=== PATIENT | male | born 1980 | race Caucasian/White ===

== ENCOUNTER 2017-08-02 22:47 | Emergency (ER) | payer SELFPAY ==
[2017-08-02 23:00] VITALS: RESP 18
--- NOTE | 2017-08-02 23:35 | ED ---
Anxiety HPI - General Chief Complaint: Anxiety Stated Complaint: Chest Pain Time Seen by Provider: 08/02/17 23:06 Source: patient Mode of arrival: wheelchair - History of Present Illness Initial Comments: This patient is a 37-year-old man who presents to be evaluated for a number of symptoms, including anxiety, shortness of breath, and paresthesias of the face and bilateral hands. The patient states that just before 9 PM he had rushed out to buy a birthday cake and candles for a friend whose that was. He states that while he was driving there he started to feel like his face and hands were tingling or numb, and he began feeling short of breath and like his chest was cold. The patient states that he pulled the car over, old on the windows, and only started feeling more anxious. He then went home more family prompted him to be seen here. His brother relates that the patient has had previous episodes of panic or anxiety. The patient states that this was a little different in that he experienced the numbness and tingling of the face and hands. MD Complaint: anxiety, shortness of breath Symptoms: dyspnea, extremity numbness/tingling, sense of impending doom Place: outdoors Previous History of Same: Yes Severity: severe Quality: intermittent Provoking factors: other Improves With: nothing Worsens With: thinking about event Associated symptoms: shortness of breath - Related Data Home Medications: Home Medications Medication Instructions Recorded Confirmed No Known Home Medications [No 08/02/17 08/02/17 Known Home Medications] Allergies/Adverse Reactions: Allergies Allergy/AdvReac Type Severity Reaction Status Date / Time No Known Allergies Allergy Verified 08/02/17 23:37 Review of Systems ROS Statement: Those systems with pertinent positive or pertinent negative responses have been documented in the HPI. ROS Other: All systems not noted in ROS Statement are negative. Constitutional: Denies: fever, chills, weakness Eyes: Denies: vision change Respiratory: Reports: dyspnea. Denies: cough, wheezes Cardiovascular: Denies: chest pain, palpitations, orthopnea, syncope Gastrointestinal: Denies: abdominal pain, vomiting, diarrhea Musculoskeletal: Denies: back pain Skin: Denies: rash Neurological: Reports: paresthesias. Denies: headache, weakness, numbness, confusion Psychiatric: Reports: anxiety. Denies: depression, homicidal thoughts, suicidal thoughts Past Medical History Past Medical History: No Reported History History of Any Multi-Drug Resistant Organisms: None Reported Past Surgical History: No Surgical Hx Reported Past Psychological History: No Psychological Hx Reported Smoking Status: Current every day smoker Past Alcohol Use History: None Reported Past Drug Use History: None Reported General Exam Limitations: no limitations General appearance: alert, anxious Head exam: Present: atraumatic, normocephalic Eye exam: Present: normal appearance. Absent: scleral icterus, conjunctival injection ENT exam: Present: mucous membranes dry Neck exam: Present: normal inspection Respiratory exam: Present: normal lung sounds bilaterally. Absent: respiratory distress, wheezes, rales, rhonchi, stridor Cardiovascular Exam: Present: regular rate, normal rhythm, normal heart sounds. Absent: systolic murmur, diastolic murmur, rubs, gallop GI/Abdominal exam: Present: soft. Absent: distended, tenderness, guarding, rebound, mass Extremities exam: Present: normal inspection, normal capillary refill. Absent: pedal edema, calf tenderness Neurological exam: Present: alert Psychiatric exam: Present: anxious. Absent: depressed Skin exam: Present: warm, dry, intact, normal color. Absent: rash Course Vital Signs 08/02/17 22:57 Temperature 98.5 F Pulse Rate 78 Respiratory 18 Rate Blood Pressure 161/113 O2 Sat by Pulse 97 Oximetry Medical Decision Making - Lab Data Result diagrams: 08/03/17 00:30 08/03/17 00:30 Lab Results 08/03/17 08/03/17 Range/Units 00:30 00:30 WBC 8.7 (3.8-10.6) k/uL RBC 5.38 (4.30-5.90) m/uL Hgb 16.3 (13.0-17.5) gm/dL Hct 47.2 (39.0-53.0) % MCV 87.9 (80.0-100.0) fL MCH 30.4 (25.0-35.0) pg MCHC 34.6 (31.0-37.0) g/dL RDW 12.0 (11.5-15.5) % Plt Count 281 (150-450) k/uL Neutrophils % 73 % Lymphocytes % 20 % Monocytes % 4 % Eosinophils % 1 % Basophils % 1 % Neutrophils # 6.3 (1.3-7.7) k/uL Lymphocytes # 1.7 (1.0-4.8) k/uL Monocytes # 0.4 (0-1.0) k/uL Eosinophils # 0.1 (0-0.7) k/uL Basophils # 0.1 (0-0.2) k/uL Sodium 140 (137-145) mmol/L Potassium 4.2 (3.5-5.1) mmol/L Chloride 104 (98-107) mmol/L Carbon Dioxide 24 (22-30) mmol/L Anion Gap 12 mmol/L BUN 12 (9-20) mg/dL Creatinine 0.80 (0.66-1.25) mg/dL Est GFR (MDRD) Af Amer >60 (>60 ml/min/1.73 sqM) Est GFR (MDRD) Non-Af >60 (>60 ml/min/1.73 sqM) Glucose 108 H (74-99) mg/dL Calcium 9.9 (8.4-10.2) mg/dL - EKG Data -: EKG Interpreted by Tn EKG shows normal: sinus rhythm, axis (Normal), intervals (Normal), QRS complexes (Normal), ST-T waves (Normal) Rate: bradycardia (Rate approximately 56 bpm) Interpretation: normal EKG Disposition Clinical Impression: Panic attack, Hypertension Disposition: HOME SELF-CARE Condition: Good Instructions: Generalized Anxiety Disorder (ED) Referrals: None,Stated [Primary Care Provider] - 1-2 days Allyson Jones MD [REFERRING] - 1-2 days
[2017-08-03 00:37] LABS: Basophils # (A) 0.1 k/uL (0-0.2); MCV 87.9 fL (80.0-100.0); Mean Platelet Volume 6.3
[2017-08-03 00:39] LABS: Basophils % (A) 1 %; Eosinophils # (A) 0.1 k/uL (0-0.7); Eosinophils % (A) 1 %; HCT 47.2 % (39.0-53.0); HGB 16.3 gm/dL (13.0-17.5); Lymphocytes # (A) 1.7 k/uL (1.0-4.8); Lymphocytes % (A) 20 %; MCH 30.4 pg (25.0-35.0); MCHC 34.6 g/dL (31.0-37.0); Monocytes # (A) 0.4 k/uL (0-1.0); Monocytes % (A) 4 %; Neutrophils # (A) 6.3 k/uL (1.3-7.7); Neutrophils % (A) 73 %; Platelet Count 281 k/uL (150-450); RBC 5.38 m/uL (4.30-5.90); WBC 8.7 k/uL (3.8-10.6)
[2017-08-03 00:44] LABS: Anion Gap 12 mmol/L; Blood Urea Nitrogen 12 mg/dL (9-20); Calcium 9.9 mg/dL (8.4-10.2); Carbon Dioxide 24 mmol/L (22-30); Chloride 104 mmol/L (98-107); Glucose 108 mg/dL (74-99); Potassium 4.2 mmol/L (3.5-5.1); Sodium 140 mmol/L (137-145)
--- NOTE | 2017-08-03 00:56 | XR ---
EXAMINATION TYPE: XR chest 2V DATE OF EXAM: 08/03/2017 COMPARISON: NONE HISTORY: Short of breath TECHNIQUE: Frontal and lateral views of the chest are obtained. FINDINGS: Heart and mediastinum are normal. Lungs are clear. Diaphragm is normal. Bony thorax is int act. There are chest leads. IMPRESSION: Normal chest
[2017-08-03 01:20] VITALS: BP 125/71; PULSE 53; TEMP 98
== END 2017-08-03 01:19 | disposition home or self-care (01) ==
LOC: EC 22:47
DX: F41.0 Panic disorder [episodic paroxysmal anxiety] (principal); I10 Essential (primary) hypertension; F17.200 Nicotine dependence, unspecified, uncomplicated
CPT/HCPCS: 36415; 71046; 80048; 85025; 93005; 99284

== ENCOUNTER → 2017-08-21 | Outpatient (CLI) | payer SELFPAY ==
[2017-08-21 12:36] LABS: T4, Free (Free Thyroxine) 1.32 ng/dL (0.78-2.19)
== END | disposition home or self-care (01) ==
LOC: LABWHC1 10:54
PROVIDERS: ATTEND Internal Medicine Interventional Cardiology
DX: E03.9 Hypothyroidism, unspecified (principal)
CPT/HCPCS: 36415; 84439; 84443

== ENCOUNTER 2018-07-09 07:03 | Emergency (ER) | payer OTHER ==
[2018-07-09] MEDS ORDERED: SODIUM CHLORIDE 0.9% 1,000 ML IV STA (07:20)
[2018-07-09] MEDS ORDERED: ONDANSETRON 4 MG/2 ML VIAL IVP STA (07:30)
[2018-07-09 07:41] LABS: Basophils # (A) 0.1 k/uL (0-0.2); Basophils % (A) 1 %; Eosinophils # (A) 0.3 k/uL (0-0.7); Eosinophils % (A) 3 %; HGB 16.7 gm/dL (13.0-17.5); Lymphocytes # (A) 2.8 k/uL (1.0-4.8); Lymphocytes % (A) 35 %; MCH 29.7 pg (25.0-35.0); MCHC 32.8 g/dL (31.0-37.0); MCV 90.6 fL (80.0-100.0); Mean Platelet Volume 6.6; Monocytes # (A) 0.4 k/uL (0-1.0); Monocytes % (A) 5 %; Neutrophils # (A) 4.3 k/uL (1.3-7.7); Neutrophils % (A) 54 %; Platelet Count 335 k/uL (150-450); RBC 5.63 m/uL (4.30-5.90); RDW 12.7 % (11.5-15.5); WBC 7.9 k/uL (3.8-10.6)
[2018-07-09 07:46] LABS: ALT 30 U/L (21-72); AST 24 U/L (17-59); Albumin 4.3 g/dL (3.5-5.0); Alkaline Phosphatase 60 U/L (38-126); Anion Gap 10 mmol/L; Blood Urea Nitrogen 13 mg/dL (9-20); Calcium 9.2 mg/dL (8.4-10.2); Carbon Dioxide 18 mmol/L (22-30); Chloride 112 mmol/L (98-107); Glucose 153 mg/dL (74-99); Sodium 140 mmol/L (137-145); Total Bilirubin 0.7 mg/dL (0.2-1.3); Total Protein 6.7 g/dL (6.3-8.2)
--- NOTE | 2018-07-09 08:01 | ED ---
General Adult HPI - General Chief complaint: Seizure Stated complaint: Seizure Time Seen by Provider: 07/09/18 07:03 Source: EMS, RN notes reviewed Mode of arrival: EMS Limitations: altered mental status - History of Present Illness Initial comments: This is a 38-year-old male who presents emergency Department with a complaint of seizures. EMS was called to the hospital because the patient had a 3 minute seizure. Patient states he doesn't know what happened. Patient states lately she's been having panic attack she's never had in the past and he was having that sensation according to his mother and then he dropped the floor and had a 3 minute seizure. When EMS arrived he was extremely diaphoretic. By the time the patient came into the emergency department he was alert and oriented 2. Patient stated he had no complaints at this time except that he was cold he denies any recent fever chills. Patient denies being on any medications. Patient states in the distant past he was a heavy drinker but hasn't drank in years. Patient denied any drug use. Patient denied any chest pain difficulty breathing shortness of breath or palpitations. Patient denies any abdominal pain. Patient denies nausea vomiting diarrhea. - Related Data Home Medications Medication Instructions Recorded Confirmed No Known Home Medications 08/02/17 07/09/18 Allergies Allergy/AdvReac Type Severity Reaction Status Date / Time No Known Allergies Allergy Verified 07/09/18 07:25 Review of Systems ROS Statement: Those systems with pertinent positive or pertinent negative responses have been documented in the HPI. ROS Other: All systems not noted in ROS Statement are negative. Past Medical History Past Medical History: No Reported History History of Any Multi-Drug Resistant Organisms: None Reported Past Surgical History: No Surgical Hx Reported Past Psychological History: No Psychological Hx Reported Smoking Status: Current every day smoker Past Alcohol Use History: None Reported Past Drug Use History: None Reported General Exam - General Exam Comments Initial Comments: GENERAL: Patient is well-developed and well-nourished. Patient is nontoxic and well- hydrated and is in mild distress. Patient is diaphoretic. ENT: Neck is soft and supple. No significant lymphadenopathy is noted. Oropharynx is clear. Moist mucous membranes. Neck has full range of motion without eliciting any pain. Patient had no signs of trauma on his head at all. EYES: The sclera were anicteric and conjunctiva were pink and moist. Extraocular movements were intact and pupils were equal round and reactive to light. Eyelids were unremarkable. PULMONARY: Unlabored respirations. Good breath sounds bilaterally. No audible rales rhonchi or wheezing was noted. CARDIOVASCULAR: There is a regular rate and rhythm without any murmurs gallops or rubs. ABDOMEN: Soft and nontender with normal bowel sounds. SKIN: Skin is clear with no lesions or rashes and otherwise unremarkable. NEUROLOGIC: Patient is alert and oriented 2. Cranial nerves II through XII are grossly intact. Motor and sensory are also intact. Normal speech, volume and content. Symmetrical smile. MUSCULOSKELETAL: Normal extremities with adequate strength and full range of motion. LYMPHATICS: No significant lymphadenopathy is noted PSYCHIATRIC: Normal psychiatric evaluation. Limitations: altered mental status Course Vital Signs 07/09/18 07/09/18 07:04 08:06 Temperature 97.5 F L Pulse Rate 98 81 Respiratory 18 18 Rate Blood Pressure 142/81 125/80 O2 Sat by Pulse 95 97 Oximetry Medical Decision Making - Medical Decision Making EKG shows normal sinus rhythm at 94 bpm IL interval 250 QRS is 88 QT interval 350 QTC is 447. Patient's EKG shows no ST segment elevation or depression or T wave abnormalities are noted. All other CT of the brain and C-spine showed no acute abnormality. Chest x-ray shows no acute normalities. Patient was feeling back to his baseline at this point. Patient had no further seizures in the emergency department. Patient will be allowed to go home and follow-up with neurology. Patient will not be able to drive until he gets cleared by neurology. Mom came back to the room and stated that over the last few months the patient' s been having what appear to be panic attacks and he seems to get over them by hugging someone. This morning he came into the room twice to get a hug from his mother and on the way out the second time he grabbed onto the dresser and then fell over she said he hit his head fairly hard and then he ceased. Currently patient has no complaints he is alert and oriented 3. - Lab Data Result diagrams: 07/09/18 07:23 07/09/18 07:23 Lab Results 07/09/18 07/09/18 07/09/18 Range/Units 07:23 07:23 07:55 WBC 7.9 (3.8-10.6) k/uL RBC 5.63 (4.30-5.90) m/uL Hgb 16.7 (13.0-17.5) gm/dL Hct 51.0 (39.0-53.0) % MCV 90.6 (80.0-100.0) fL MCH 29.7 (25.0-35.0) pg MCHC 32.8 (31.0-37.0) g/dL RDW 12.7 (11.5-15.5) % Plt Count 335 (150-450) k/uL Neutrophils % 54 % Lymphocytes % 35 % Monocytes % 5 % Eosinophils % 3 % Basophils % 1 % Neutrophils # 4.3 (1.3-7.7) k/uL Lymphocytes # 2.8 (1.0-4.8) k/uL Monocytes # 0.4 (0-1.0) k/uL Eosinophils # 0.3 (0-0.7) k/uL Basophils # 0.1 (0-0.2) k/uL Sodium 140 (137-145) mmol/L Potassium 5.0 (3.5-5.1) mmol/L Chloride 112 H (98-107) mmol/L Carbon Dioxide 18 L (22-30) mmol/L Anion Gap 10 mmol/L BUN 13 (9-20) mg/dL Creatinine 0.76 (0.66-1.25) mg/dL Est GFR (CKD-EPI)AfAm >90 (>60 ml/min/1.73 sqM) Est GFR (CKD-EPI)NonAf >90 (>60 ml/min/1.73 sqM) Glucose 153 H (74-99) mg/dL Calcium 9.2 (8.4-10.2) mg/dL Total Bilirubin 0.7 (0.2-1.3) mg/dL AST 24 (17-59) U/L ALT 30 (21-72) U/L Alkaline Phosphatase 60 (38-126) U/L Total Protein 6.7 (6.3-8.2) g/dL Albumin 4.3 (3.5-5.0) g/dL Urine Color Light Yellow Urine Appearance Clear (Clear) Urine pH 6.0 (5.0-8.0) Ur Specific Barton 1.009 (1.001-1.035) Urine Protein Trace H (Negative) Urine Glucose (UA) Negative (Negative) Urine Ketones Trace H (Negative) Urine Blood Trace H (Negative) Urine Nitrite Negative (Negative) Urine Bilirubin Negative (Negative) Urine Urobilinogen <2.0 (<2.0) mg/dL Ur Leukocyte Esterase Negative (Negative) Urine RBC <1 (0-5) /hpf Urine WBC 7 H (0-5) /hpf Hyaline Casts 1 (0-2) /lpf Urine Opiates Screen Not Detected (NotDetected) Ur Oxycodone Screen Not Detected (NotDetected) Urine Methadone Screen Not Detected (NotDetected) Ur Propoxyphene Screen Not Detected (NotDetected) Ur Barbiturates Screen Not Detected (NotDetected) U Tricyclic Antidepress Not Detected (NotDetected) Ur Phencyclidine Scrn Not Detected (NotDetected) Ur Amphetamines Screen Not Detected (NotDetected) U Methamphetamines Scrn Not Detected (NotDetected) U Benzodiazepines Scrn Not Detected (NotDetected) Urine Cocaine Screen Not Detected (NotDetected) U Marijuana (THC) Screen Detected H (NotDetected) Disposition Clinical Impression: New onset seizure Disposition: HOME SELF-CARE Instructions (If sedation given, give patient instructions): New-Onset Seizure in Adults (ED) Additional Instructions: No driving until cleared by neurology. Is patient prescribed a controlled substance at d/c from ED?: No Referrals: None,Stated [Primary Care Provider] - 1-2 days Allyson Jones MD [REFERRING] - 1-2 days Time of Disposition: 09:08
--- NOTE | 2018-07-09 08:08 | CT ---
EXAMINATION TYPE: CT brain [place] DATE OF EXAM: 07/09/2018 COMPARISON: HISTORY: Seizure CT DLP: 1415.[address] Brain: Unenhanced CT of the brain was performed. The ventricles, basal cisterns and sulci overlying the cerebral convexities demonstrate a normal appe arance. There is no evidence for intracranial hemorrhage or sulcal effacement. No mass effects are seen. If symptoms persist consider MRI. Osseous calvarium is intact. IMPRESSION: No acute intracranial process CT Cervical Spine: Unenhanced CT of the cervical spine was performed with bone and soft tissue window settings submitted . Coronal and sagittal reconstruction is obtained. There is normal alignment and prevertebral soft tissues. I do not see evidence for fracture or sublu xation. Scattered degenerative changes are present. The lung apices are clear. IMPRESSION: No evidence for acute fracture or subluxation of the cervical spine.
[2018-07-09 08:28] LABS: Amphetamine Screen,Urine Not Detected (NotDetected); Barbiturate Screen,Urine Not Detected (NotDetected); Benzodiazepines Screen,Urine Not Detected (NotDetected); Cocaine Screen,Urine Not Detected (NotDetected); Methadone Screen, Urine Not Detected (NotDetected); Opiate Screen,Urine Not Detected (NotDetected); Oxycodone Screen, Urine Not Detected (NotDetected); Phencyclidine Screen,Urine Not Detected (NotDetected); Tricyclic Antidepressant,Urine Not Detected (NotDetected); Urn Cannabinoid Scrn Detected (NotDetected)
[2018-07-09 08:31] LABS: Appearance,Urine Clear (Clear); Bilirubin,Urine Negative (Negative); Blood,Urine Trace (Negative); Color,Urine Light Yellow; Glucose,Urine (UA) Negative (Negative); Hyaline Casts,Urine 1 /lpf (0-2); Ketones,Urine Trace (Negative); Leukocyte Esterase,Urine Negative (Negative); Nitrite,Urine Negative (Negative); Protein,Urine Trace (Negative); RBC,Urine <1 /hpf (0-5); Specific Gravity,Urine 1.009 (1.001-1.035); Urobilinogen,Urine <2.0 mg/dL (<2.0); WBC,Urine 7 /hpf (0-5)
--- NOTE | 2018-07-09 09:05 | XR ---
EXAMINATION TYPE: XR chest 2V DATE OF EXAM: 07/09/2018 COMPARISON: August 03, 2017 HISTORY: Chest pain TECHNIQUE: Frontal and lateral views of the chest are obtained. FINDINGS: There is no focal air space opacity. No evidence for pneumothorax. No pleural effusion. The cardiac silhouette size is within normal limits. The osseous structures are grossly intact. IMPRESSION: 1. No acute cardiopulmonary process.
[2018-07-09 09:53] VITALS: BP 129/90; PULSE 80; RESP 16; TEMP 97.9
== END 2018-07-09 09:59 | disposition home or self-care (01) ==
LOC: EC 07:03
DX: R56.9 Unspecified convulsions (principal); F41.0 Panic disorder [episodic paroxysmal anxiety]; R61 Generalized hyperhidrosis; F17.200 Nicotine dependence, unspecified, uncomplicated; W01.190A Fall on same level from slipping, tripping and stumbling with subsequent striking against furniture, initial encounter; Y92.89 Other specified places as the place of occurrence of the external cause
CPT/HCPCS: 99285 ×2; 96374 ×2; 96361 ×3; 36415; 93005; 80053; 83690; 83735; 84100; 85025; 81001; 80306; 83520 ×2; 71046; 72125; 70450; G0480; J2405; J1953; 80320

== ENCOUNTER 2018-07-09 15:07 | Emergency (ER) | payer OTHER ==
[2018-07-09 15:20] LABS: Glucose,Whole Blood 186 mg/dL (75-99)
[2018-07-09 15:22] VITALS: RESP 16
[2018-07-09] MEDS ORDERED: SODIUM CHLORIDE 0.9% 1,000 ML IV STA ×2 (15:23)
[2018-07-09] MEDS ORDERED: levETIRAcetam IV 1,000 MG in SALINE 1 100ML.BAG IVPB STA (15:49)
--- NOTE | 2018-07-09 16:00 | ED ---
Seizure HPI - General Chief Complaint: Seizure Stated Complaint: Seizure Time Seen by Provider: 07/09/18 15:19 Source: EMS, RN notes reviewed, old records reviewed Mode of arrival: EMS Limitations: altered mental status - History of Present Illness Initial Comments: This is a 38-year-old male the ER for evaluation. Patient sent in by EMS with similar seizure-like activity. Patient currently postictal unable to give history, history obtained from EMS as well as patient's prior chart as he was in the emergency room earlier in the day for the same complaint MD Complaint: seizure -: minutes(s) Description of Episode: loss of consciousness, tonic-clonic movement, other ( biting tongue) -: minutes(s) Witnessed: yes - by bystander Trauma: No Seizure History: other (new seizure earlier today) Place: home Possible Precipitating Event: none Associated Symptoms: confusion Treatments Prior to Arrival: none - Related Data Home Medications Medication Instructions Recorded Confirmed No Known Home Medications 08/02/17 07/09/18 Allergies Allergy/AdvReac Type Severity Reaction Status Date / Time No Known Allergies Allergy Verified 07/09/18 15:25 Review of Systems ROS Statement: Those systems with pertinent positive or pertinent negative responses have been documented in the HPI. ROS Other: All systems not noted in ROS Statement are negative. Past Medical History Past Medical History: No Reported History History of Any Multi-Drug Resistant Organisms: None Reported Past Surgical History: No Surgical Hx Reported Past Psychological History: No Psychological Hx Reported Smoking Status: Current every day smoker Past Alcohol Use History: None Reported Past Drug Use History: None Reported General Exam Limitations: altered mental status, physical limitation (postIctal) General appearance: alert, in no apparent distress Head exam: Present: atraumatic, normocephalic, normal inspection Eye exam: Present: normal appearance, PERRL, EOMI. Absent: scleral icterus, conjunctival injection, periorbital swelling ENT exam: Present: normal exam, mucous membranes moist Neck exam: Present: normal inspection. Absent: tenderness, meningismus, lymphadenopathy Respiratory exam: Present: normal lung sounds bilaterally. Absent: respiratory distress, wheezes, rales, rhonchi, stridor Cardiovascular Exam: Present: regular rate, normal rhythm, normal heart sounds. Absent: systolic murmur, diastolic murmur, rubs, gallop, clicks GI/Abdominal exam: Present: soft, normal bowel sounds. Absent: distended, tenderness, guarding, rebound, rigid Extremities exam: Present: normal inspection, full ROM, normal capillary refill. Absent: tenderness, pedal edema, joint swelling, calf tenderness Back exam: Present: normal inspection Neurological exam: Present: alert, oriented X3, CN II-XII intact Psychiatric exam: Present: normal affect, normal mood Skin exam: Present: warm, dry, intact, normal color. Absent: rash Course Vital Signs 07/09/18 07/09/18 15:13 16:34 Pulse Rate 92 81 Respiratory 16 16 Rate Blood Pressure 136/73 131/73 O2 Sat by Pulse 94 L 96 Oximetry - Reevaluation(s) Reevaluation #1: 07/09/18 18:26 Patient's medical record and ER chart from earlier are reviewed Reevaluation #2: 07/09/18 18:26 Seizure-like activity here in the ER Reevaluation #3: 07/09/18 18:26 Spoke with family at length regarding patient's seizure and treatment, patient is in transfer for neurological evaluation Medical Decision Making - Medical Decision Making 38 male the ER, will be transferred to [facility] for neurological evaluation secondary to new onset seizure disorder - Lab Data Result diagrams: 07/09/18 15:38 07/09/18 15:38 Lab Results 07/09/18 07/09/18 07/09/18 Range/Units 15:18 15:38 15:38 WBC 15.0 H (3.8-10.6) k/uL RBC 5.25 (4.30-5.90) m/uL Hgb 15.5 (13.0-17.5) gm/dL Hct 47.3 (39.0-53.0) % MCV 90.0 (80.0-100.0) fL MCH 29.5 (25.0-35.0) pg MCHC 32.7 (31.0-37.0) g/dL RDW 12.7 (11.5-15.5) % Plt Count 345 (150-450) k/uL Neutrophils % 84 % Lymphocytes % 11 % Monocytes % 4 % Eosinophils % 0 % Basophils % 0 % Neutrophils # 12.5 H (1.3-7.7) k/uL Lymphocytes # 1.7 (1.0-4.8) k/uL Monocytes # 0.6 (0-1.0) k/uL Eosinophils # 0.1 (0-0.7) k/uL Basophils # 0.0 (0-0.2) k/uL Sodium 137 (137-145) mmol/L Potassium 4.5 (3.5-5.1) mmol/L Chloride 110 H (98-107) mmol/L Carbon Dioxide 18 L (22-30) mmol/L Anion Gap 9 mmol/L BUN 10 (9-20) mg/dL Creatinine 0.74 (0.66-1.25) mg/dL Est GFR (CKD-EPI)AfAm >90 (>60 ml/min/1.73 sqM) Est GFR (CKD-EPI)NonAf >90 (>60 ml/min/1.73 sqM) Glucose 194 H (74-99) mg/dL POC Glucose (mg/dL) 186 H (75-99) mg/dL POC Glu Supervisor [employer] ID Flaquita Kelley Calcium 8.9 (8.4-10.2) mg/dL Phosphorus 2.8 (2.5-4.5) mg/dL Magnesium 2.1 (1.6-2.3) mg/dL Total Bilirubin 1.2 (0.2-1.3) mg/dL AST 32 (17-59) U/L ALT 31 (21-72) U/L Alkaline Phosphatase 70 (38-126) U/L Total Protein 6.6 (6.3-8.2) g/dL Albumin 4.1 (3.5-5.0) g/dL Lipase 68 (23-300) U/L Salicylates <1.0 mg/dL Acetaminophen <10.0 ug/mL Serum Alcohol <10 mg/dL - EKG Data -: EKG Interpreted by Me (EKG shows sinus rhythm rate of 92, OK 136, QRS 92, QTc 450) - Radiology Data Radiology results: report reviewed (CT brain negative for acute disease), image reviewed Disposition Clinical Impression: New onset seizure, Status epilepticus, Recurrent seizures Disposition: OTHER INSTITUTION NOT DEFINED Condition: Fair Instructions (If sedation given, give patient instructions): Recurrent Seizures in Adults (ED) Is patient prescribed a controlled substance at d/c from ED?: No Referrals: None,Stated [Primary Care Provider] - 1-2 days - Out of Hospital Transfer - Req. Specs Out of Hospital Transfer - Requested Specifics: Other Emergency Center ([facility])
[2018-07-09 16:15] LABS: Basophils % (A) 0 %; Eosinophils # (A) 0.1 k/uL (0-0.7); Eosinophils % (A) 0 %; HCT 47.3 % (39.0-53.0); HGB 15.5 gm/dL (13.0-17.5); Lymphocytes # (A) 1.7 k/uL (1.0-4.8); Lymphocytes % (A) 11 %; MCH 29.5 pg (25.0-35.0); MCHC 32.7 g/dL (31.0-37.0); Mean Platelet Volume 6.6; Monocytes # (A) 0.6 k/uL (0-1.0); Monocytes % (A) 4 %; Neutrophils # (A) 12.5 k/uL (1.3-7.7); Neutrophils % (A) 84 %; Platelet Count 345 k/uL (150-450); RBC 5.25 m/uL (4.30-5.90); RDW 12.7 % (11.5-15.5)
[2018-07-09 16:19] LABS: ALT 31 U/L (21-72); AST 32 U/L (17-59); Acetaminophen <10.0 ug/mL; Albumin 4.1 g/dL (3.5-5.0); Alcohol <10 mg/dL; Alkaline Phosphatase 70 U/L (38-126); Anion Gap 9 mmol/L; Blood Urea Nitrogen 10 mg/dL (9-20); Calcium 8.9 mg/dL (8.4-10.2); Carbon Dioxide 18 mmol/L (22-30); Chloride 110 mmol/L (98-107); Glucose 194 mg/dL (74-99); Lipase 68 U/L (23-300); Magnesium 2.1 mg/dL (1.6-2.3); Phosphorus 2.8 mg/dL (2.5-4.5); Potassium 4.5 mmol/L (3.5-5.1); Salicylate <1.0 mg/dL; Sodium 137 mmol/L (137-145); Total Bilirubin 1.2 mg/dL (0.2-1.3); Total Protein 6.6 g/dL (6.3-8.2)
--- NOTE | 2018-07-09 17:46 | CT ---
EXAMINATION: CT brain wo con DATE AND TIME: 07/09/2018 5:23 PM CLINICAL INDICATION: PHH; pain TECHNIQUE: Standard departmental protocol.; 1260.4; COMPARISON: 07/09/2018 FINDINGS: The calvarium is intact. There is no intracranial hemorrhage. There is no intracranial mass or mass e ffect. No definite new intra-axial or extra-axial attenuation defect. The paranasal sinuses, middle ear cavities, and mastoid sinus air cells are clear. The orbits are unr emarkable. Excessive cerumen in the bilateral external auditory canals incidentally noted. IMPRESSION: NO ACUTE PROCESS.
[2018-07-09] MEDS ORDERED: ACETAMINOPHEN TAB 325 MG TAB PO STA (18:44)
[2018-07-09 18:52] VITALS: BP 115/68; PULSE 95
== END 2018-07-09 18:52 | disposition other institution (70) ==
LOC: EC 15:07
DX: G40.901 Epilepsy, unspecified, not intractable, with status epilepticus (principal); R41.0 Disorientation, unspecified; F17.200 Nicotine dependence, unspecified, uncomplicated
CPT/HCPCS: 36415; 93005; 80053; 83690; 83735; 84100; 85025; 83520 ×2; 80320; 70450; 99285; 96374; 96361 ×3; J1953

== ENCOUNTER → 2018-09-16 | Outpatient (CLI) | payer OTHER ==
[2018-09-16 07:28] LABS: Basophils # (A) 0.1 k/uL (0-0.2); Basophils % (A) 1 %; Eosinophils # (A) 0.2 k/uL (0-0.7); Eosinophils % (A) 4 %; HCT 49.6 % (39.0-53.0); HGB 16.1 gm/dL (13.0-17.5); Lymphocytes # (A) 2.2 k/uL (1.0-4.8); Lymphocytes % (A) 39 %; MCH 29.5 pg (25.0-35.0); MCHC 32.4 g/dL (31.0-37.0); MCV 91.2 fL (80.0-100.0); Mean Platelet Volume 6.6; Monocytes # (A) 0.5 k/uL (0-1.0); Monocytes % (A) 9 %; Neutrophils # (A) 2.5 k/uL (1.3-7.7); Neutrophils % (A) 46 %; Platelet Count 230 k/uL (150-450); RBC 5.43 m/uL (4.30-5.90); RDW 12.9 % (11.5-15.5); WBC 5.6 k/uL (3.8-10.6)
[2018-09-16 16:26] LABS: Valproic Acid (Depakene) 51.8 ug/mL (50.0-100.0)
== END | disposition home or self-care (01) ==
LOC: LABWHC1 06:57
PROVIDERS: ATTEND Psychiatry & Neurology Neurology
DX: G40.309 Generalized idiopathic epilepsy and epileptic syndromes, not intractable, without status epilepticus (principal)
CPT/HCPCS: 36415; 80164; 84450; 84460; 85025

== ENCOUNTER → 2018-10-15 | Outpatient (CLI) | payer OTHER | END | disposition home or self-care (01) | LOC: LABWHC1 08:25 | PROVIDERS: ATTEND Psychiatry & Neurology Neurology | DX: G40.309 Generalized idiopathic epilepsy and epileptic syndromes, not intractable, without status epilepticus (principal) | CPT/HCPCS: 36415; 80164 ==

== ENCOUNTER → 2018-12-23 | Outpatient (CLI) | payer OTHER | END | disposition home or self-care (01) | LOC: LABWHC1 07:25 | PROVIDERS: ATTEND Psychiatry & Neurology Neurology | DX: G40.109 Localization-related (focal) (partial) symptomatic epilepsy and epileptic syndromes with simple partial seizures, not intractable, without status epilepticus (principal) | CPT/HCPCS: 36415; 80164 ==

== ENCOUNTER → 2019-07-29 | Outpatient (CLI) | payer OTHER ==
[2019-07-29 12:00] LABS: Basophils # (A) 0.2 k/uL (0-0.2); Basophils % (A) 2 %; Eosinophils # (A) 0.2 k/uL (0-0.7); Eosinophils % (A) 3 %; HCT 49.8 % (39.0-53.0); HGB 16.6 gm/dL (13.0-17.5); Lymphocytes # (A) 3.9 k/uL (1.0-4.8); Lymphocytes % (A) 46 %; MCH 31.2 pg (25.0-35.0); MCHC 33.3 g/dL (31.0-37.0); MCV 93.7 fL (80.0-100.0); Mean Platelet Volume 7.3; Monocytes # (A) 0.5 k/uL (0-1.0); Monocytes % (A) 6 %; Neutrophils # (A) 3.5 k/uL (1.3-7.7); Neutrophils % (A) 41 %; Platelet Count 261 k/uL (150-450); RBC 5.32 m/uL (4.30-5.90); RDW 12.5 % (11.5-15.5); WBC 8.5 k/uL (3.8-10.6)
[2019-07-29 18:25] LABS: African American GFR (CKD) 110.2 (60.0-200.0); Albumin 4.5 g/dL (3.80-4.90); Albumin/Globulin Ratio 2.5 (1.60-3.17); Anion Gap 7.8 mmol/L (4.00-12.00); Calcium 9.2 mg/dL (8.7-10.3); Carbon Dioxide 27.2 mmol/L (21.6-31.8); Globulin 1.8 g/dL (1.6-3.3); Non-African American GFR(CKD) 95.1 (60.0-200.0); Potassium 4.2 mmol/L (3.5-5.5); Total Bilirubin 0.9 mg/dL (0.3-1.2); Total Protein 6.3 g/dL (6.2-8.2)
[2019-07-29 18:28] LABS: Valproic Acid (Depakene) 51.6 ug/mL (50.0-100.0)
== END | disposition home or self-care (01) ==
LOC: LABWHC1 11:02
PROVIDERS: ATTEND Psychiatry & Neurology Neurology
DX: G40.109 Localization-related (focal) (partial) symptomatic epilepsy and epileptic syndromes with simple partial seizures, not intractable, without status epilepticus (principal)
CPT/HCPCS: 36415; 80053; 80164; 82306; 84443; 85025

== ENCOUNTER 2023-02-25 17:43 | Emergency (ER) | payer OTHER ==
[2023-02-25 18:34] VITALS: RESP 20; TEMP 97.9
[2023-02-25] MEDS ORDERED: LORazepam 2 MG/ML INJ IV STA (19:25)
[2023-02-25] MEDS ORDERED: SODIUM CHLORIDE 0.9% 1,000 ML IV STA ×2 (19:25)
[2023-02-25] MEDS ORDERED: SODIUM CHLORIDE 0.9% 500 ML 500 ML IV STA (19:25)
[2023-02-25] MEDS ORDERED: ONDANSETRON 4 MG/2 ML VIAL IVP STA (19:26)
--- NOTE | 2023-02-25 19:26 | ED ---
Anxiety HPI - General Chief Complaint: Anxiety Stated Complaint: anxiety Time Seen by Provider: 02/25/23 18:58 Source: patient, RN notes reviewed, old records reviewed, Caregiver Mode of arrival: ambulatory Limitations: no limitations - History of Present Illness Initial Comments: This is a 42-year-old male to the emergency department for evaluation injury. Patient presents today for evaluation regards to severe anxiety panic attacks significant. Patient has significantly increases alcohol use recently with unemployment. Patient has no other change in medications no recent medical history no travel history no sick contacts. Patient is very depressed and anxious feels he can't catch his breath feels like is getting significantly worse as far as his health MD Complaint: anxiety, shortness of breath, other (Alcohol intoxication) -: minutes(s) Symptoms: dyspnea, chest pain, palpitations Place: home Previous History of Same: Yes Severity: moderate Quality: constant Provoking factors: none known Improves With: nothing, alcohol use Associated symptoms: weakness - Related Data Home Medications: Home Medications Medication Instructions Recorded Confirmed No Known Home Medications 08/02/17 07/09/18 Allergies/Adverse Reactions: Allergies Allergy/AdvReac Type Severity Reaction Status Date / Time No Known Allergies Allergy Verified 02/25/23 18:34 Review of Systems ROS Statement: Those systems with pertinent positive or pertinent negative responses have been documented in the HPI. ROS Other: All systems not noted in ROS Statement are negative. Past Medical History Past Medical History: Hyperlipidemia, Hypertension, Seizure Disorder History of Any Multi-Drug Resistant Organisms: None Reported Past Surgical History: No Surgical Hx Reported Past Psychological History: ADD/ADHD, Anxiety Smoking Status: Never smoker Past Alcohol Use History: Occasional Past Drug Use History: None Reported General Exam Limitations: altered mental status General appearance: alert, in no apparent distress, anxious Head exam: Present: atraumatic, normocephalic, normal inspection Eye exam: Present: normal appearance, PERRL, EOMI. Absent: scleral icterus, conjunctival injection, periorbital swelling ENT exam: Present: normal exam, mucous membranes moist Neck exam: Present: normal inspection. Absent: tenderness, meningismus, lymphadenopathy Respiratory exam: Present: normal lung sounds bilaterally. Absent: respiratory distress, wheezes, rales, rhonchi, stridor Cardiovascular Exam: Present: normal rhythm, tachycardia, normal heart sounds. Absent: systolic murmur, diastolic murmur, rubs, gallop, clicks GI/Abdominal exam: Present: soft, normal bowel sounds. Absent: distended, tenderness, guarding, rebound, rigid Extremities exam: Present: normal inspection, full ROM, normal capillary refill. Absent: tenderness, pedal edema, joint swelling, calf tenderness Back exam: Present: normal inspection Neurological exam: Present: alert, oriented X3, CN II-XII intact Psychiatric exam: Present: normal affect, normal mood, agitated, anxious Skin exam: Present: warm, dry, intact, normal color. Absent: rash Course Vital Signs 02/25/23 02/25/23 18:26 21:18 Temperature 97.9 F Pulse Rate 132 H 121 H Respiratory 20 20 Rate Blood Pressure 149/95 130/81 O2 Sat by Pulse 97 95 Oximetry - Reevaluation(s) Reevaluation #1: Medical record is reviewed Reevaluation #2: Patient does feel less anxious with anxiolysis here in the ER Reevaluation #3: Patient informed results questions answered Reevaluation #4: Was pt. sent in by a medical professional or institution (Dr. PA, DIALYSIS EQUIPMENT TECHNICIAN, urgent care, hospital, or senior living...) When possible be specific @ -no Did you speak to anyone other than the patient for history (EMS, parent, family, police, friend...)? What history was obtained from this source @ -no Did you review nursing and triage notes (agree or disagree)? Why? @ -agree Are old charts reviewed (outside hosp., previous admission, EMS record, old EKG, old radiological studies, urgent care reports/EKG's, senior living records)? Report findings @ -yes Differential Diagnosis (chest pain, altered mental status, abdominal pain women, abdominal pain men, vaginal bleeding, weakness, fever, dyspnea, syncope, headache, dizziness, GI bleed, back pain, seizure, CVA, palpatations, mental he alth, musculoskeletal)? @ -prior EKG interpreted by me (3pts min.). @ -no X-rays interpreted by me (1pt min.). @ -no CT interpreted by me (1pt min.). @ -no U/S interpreted by me (1pt. min.). @ -no What testing was considered but not performed or refused? (CT, X-rays, U/S, labs)? Why? @ -none What meds were considered but not given or refused? Why? @ -none Did you discuss the management of the patient with other professionals (professionals i.e. Dr., PA, DIALYSIS EQUIPMENT TECHNICIAN, lab, RT, psych nurse, social work job titles, insurance appraiser, teacher, data officer, manager case management)? Give summary @ -no Was smoking cessation discussed for >3mins.? @ -no Was critical care preformed (if so, how long)? @ -no Were there social determinants of health that impacted care today? How? (Homelessness, low income, unemployed, alcoholism, drug addiction, transportation, low edu. Level, literacy, decrease access to med. care, residential, re hab)? @ -none Was there de-escalation of care discussed even if they declined (Discuss DNR or withdrawal of care, Hospice)? DNR status @ -no What co-morbidities impacted this encounter? (DM, HTN, Smoking, COPD, CAD, Cancer, CVA, ARF, Chemo, Hep., AIDS, mental health diagnosis, sleep apnea, morbid obesity)? @ -none Was patient admitted / discharged? Hospital course, mention meds given and route, prescriptions, significant lab abnormalities, going to OR and other pertinent info. @ -42 male to the emergency department for evaluation of alcohol intoxication was here severely increased recent depression and anxiety. Patient will follow- up as an outpatient with primary care and further counseling and supportive care mental health Undiagnosed new problem with uncertain prognosis? @ -no Drug Therapy requiring intensive monitoring for toxicity (Heparin, Nitro, Insulin, Cardizem)? @ -no Were any procedures done? @ -no Diagnosis/symptom? @ -Alcohol intoxication and anxiety, depression Acute, or Chronic, or Acute on Chronic? @ -Acute Uncomplicated (without systemic symptoms) or Complicated (systemic symptoms)? @ -Complicated Side effects of treatment? @ -no Exacerbation, Progression, or Severe Exacerbation? @ -exacerbation Poses a threat to life or bodily function? How? (Chest pain, [place], [place], pneumonia, PE, COPD, DKA, ARF, appy, cholecystitis, CVA, Diverticulitis, Homicidal, [place] icidal, threat to staff... and all critical care pts) @ -yes Medical Decision Making - Medical Decision Making 42 male to the emergency department for evaluation of alcohol intoxication was here severely increased recent depression and anxiety. Patient will follow-up as an outpatient with primary care and further counseling and supportive care mental health - Lab Data Result diagrams: 02/25/23 19:47 02/25/23 19:47 Lab Results 02/25/23 02/25/23 Range/Units 19:47 19:47 WBC 6.3 (3.8-10.6) k/uL RBC 5.47 (4.30-5.90) m/uL Hgb 17.0 (13.0-17.5) gm/dL Hct 51.0 (39.0-53.0) % MCV 93.3 (80.0-100.0) fL MCH 31.2 (25.0-35.0) pg MCHC 33.4 (31.0-37.0) g/dL RDW 13.0 (11.5-15.5) % Plt Count 225 (150-450) k/uL MPV 6.6 Neutrophils % 71 % Lymphocytes % 19 % Monocytes % 6 % Eosinophils % 2 % Basophils % 1 % Neutrophils # 4.5 (1.3-7.7) k/uL Lymphocytes # 1.2 (1.0-4.8) k/uL Monocytes # 0.4 (0-1.0) k/uL Eosinophils # 0.1 (0-0.7) k/uL Basophils # 0.0 (0-0.2) k/uL Sodium 136 L (137-145) mmol/L Potassium 4.9 (3.5-5.1) mmol/L Chloride 100 (98-107) mmol/L Carbon Dioxide 24 (22-30) mmol/L Anion Gap 12 mmol/L BUN 12 (9-20) mg/dL Creatinine 0.96 (0.66-1.25) mg/dL Est GFR (CKD-EPI)AfAm >90 (>60 ml/min/1.73 sqM) Est GFR (CKD-EPI)NonAf >90 (>60 ml/min/1.73 sqM) Glucose 93 (74-99) mg/dL Calcium 8.9 (8.4-10.2) mg/dL Phosphorus 3.4 (2.5-4.5) mg/dL Magnesium 2.0 (1.6-2.3) mg/dL Total Bilirubin 1.3 (0.2-1.3) mg/dL AST 179 H (17-59) U/L ALT 151 H (4-49) U/L Alkaline Phosphatase 105 (38-126) U/L Total Protein 7.7 (6.3-8.2) g/dL Albumin 4.5 (3.5-5.0) g/dL Lipase 157 (23-300) U/L TSH 0.659 (0.465-4.680) mIU/L Serum Alcohol 200 mg/dL Disposition Clinical Impression: Acute anxiety, Panic attack, Alcohol intoxication, Depression Disposition: HOME SELF-CARE Condition: Fair Instructions (If sedation given, give patient instructions): Generalized Anxiety Disorder (ED), Alcohol Intoxication (ED) Is patient prescribed a controlled substance at d/c from ED?: No Referrals: Mark Elizabeth [Primary Care Provider] - 1-2 days Time of Disposition: 15:10
[2023-02-25 20:18] LABS: Basophils % (A) 1 %; Eosinophils # (A) 0.1 k/uL (0-0.7); Eosinophils % (A) 2 %; Lymphocytes # (A) 1.2 k/uL (1.0-4.8); Lymphocytes % (A) 19 %; MCH 31.2 pg (25.0-35.0); MCHC 33.4 g/dL (31.0-37.0); MCV 93.3 fL (80.0-100.0); Mean Platelet Volume 6.6; Monocytes # (A) 0.4 k/uL (0-1.0); Monocytes % (A) 6 %; Neutrophils # (A) 4.5 k/uL (1.3-7.7); Neutrophils % (A) 71 %; Platelet Count 225 k/uL (150-450); RBC 5.47 m/uL (4.30-5.90); WBC 6.3 k/uL (3.8-10.6)
[2023-02-25 20:26] LABS: ALT 151 U/L (4-49); AST 179 U/L (17-59); African American GFR (CKD) >90 (>60 ml/min/1.73 sqM); Albumin 4.5 g/dL (3.5-5.0); Alkaline Phosphatase 105 U/L (38-126); Anion Gap 12 mmol/L; Blood Urea Nitrogen 12 mg/dL (9-20); Calcium 8.9 mg/dL (8.4-10.2); Carbon Dioxide 24 mmol/L (22-30); Chloride 100 mmol/L (98-107); Glucose 93 mg/dL (74-99); Lipase 157 U/L (23-300); Non-African American GFR(CKD) >90 (>60 ml/min/1.73 sqM); Phosphorus 3.4 mg/dL (2.5-4.5); Potassium 4.9 mmol/L (3.5-5.1); Sodium 136 mmol/L (137-145); Total Bilirubin 1.3 mg/dL (0.2-1.3); Total Protein 7.7 g/dL (6.3-8.2)
[2023-02-25 21:19] VITALS: BP 130/81; PULSE 121
[2023-02-25 21:49] LABS: Alcohol 200 mg/dL
== END 2023-02-25 21:38 | disposition home or self-care (01) ==
LOC: EC 17:43
DX: F41.0 Panic disorder [episodic paroxysmal anxiety] (principal); F10.129 Alcohol abuse with intoxication, unspecified; F32.A Depression, unspecified; I10 Essential (primary) hypertension; I25.10 Atherosclerotic heart disease of native coronary artery without angina pectoris; J44.9 Chronic obstructive pulmonary disease, unspecified; E11.10 Type 2 diabetes mellitus with ketoacidosis without coma; E78.5 Hyperlipidemia, unspecified; Y90.7 Blood alcohol level of 200-239 mg/100 ml
CPT/HCPCS: 36415; 80053; 83690; 83735; 84100; 84443; 85025; 99283; 96374; 96375; 96361; G0480; J2060; J2405; 80320